=== PATIENT | male | born 1965 | race Caucasian/White ===

== ENCOUNTER 2019-04-18 07:16 | Emergency (ER) | payer BC ==
[2019-04-18] MEDS ORDERED: NS 0.9% 1000 ML** 1,000 ML IV ONE (07:25)
[2019-04-18] MEDS ORDERED: Morphine 4 MG/ML VIAL (1 ml) 4 MG/ML VIAL IV ONE ×2 (07:34→11:11)
[2019-04-18] MEDS ORDERED: Ondansetron INJ* 2 MG/ML VIAL IV ONE (07:34)
[2019-04-18 08:02] LABS: INR 1.09 (0.82-1.09)
[2019-04-18 08:06] LABS: Hematocrit 45 % (42-52); Mean Corpuscular HGB Conc 36 g/dL (31-36); Mean Corpuscular Hemoglobin 33 pg (27-31); Mean Corpuscular Volume 93 fL (80-94); Mean Platelet Volume 8.7 fL (7.4-10.4); Platelet Count 252 10^3/uL (150-450); Red Cell Distribution Width 14 % (10-15); White Blood Count 17.9 10^3/uL (3.5-10.8)
[2019-04-18 08:15] LABS: Albumin 4.5 g/dL (3.2-5.2); Albumin/Globulin Ratio 1.7 (1-3); BUN/Creatinine Ratio 13.8 (8-20); C Reactive Protein 25.02 mg/L (<8.01); Calcium 9.5 mg/dL (8.6-10.3); EGFR African American 100.8 (>60); EGFR Non-African American 83.3 (>60); Globulin 2.7 g/dL (2-4); Magnesium 1.8 mg/dL (1.9-2.7); Potassium 3.6 mmol/L (3.5-5.0); Total Bilirubin 1.3 mg/dL (0.2-1.0); Total Protein 7.2 g/dL (6.4-8.9)
[2019-04-18 08:58] LABS: ABS Lymphocytes 1.6 10^3/ul (1.0-4.8); ABS Monocytes 1.9 10^3/ul (0-0.8); ABS Neutrophils 14.4 10^3/ul (1.5-7.7); Eosinophil % 0.1 %; Lymphocyte % 8.9 %
[2019-04-18] MEDS ORDERED: diPHENhydraMINE IV* 50 MG/ML 1 ml VIAL (BENADRYL) IV ONE (09:51)
[2019-04-18] MEDS ORDERED: Iohexol 300* (CONTRAST) 10 ML SDV IV ONE (09:55)
--- NOTE | 2019-04-18 10:20 | ED ---
Abdominal Pain/Male - HPI Summary HPI Summary: This patient is an otherwise healthy 54-year-old male presenting to the ED with acute onset mid and upper epigastric pain to the abdomen at around 3 PM yesterday. He states immediately before this he drank a grapefruit infused [place] last evening. He states the pain was severe, nonradiating and associated with mild nausea. He denies any vomiting, constipation or diarrhea. He states since that time, the pain has moved to the bilateral lower quadrants and now is endorsing diffuse severe pain. He rates his pain 10/10. Again, nonradiating, denies any back pain. He denies any chest pain or shortness of breath. He does not feel any tearing or ripping sensation, but instead a severe stabbing pain which is now mostly located just below the umbilicus and worse to the right side. He has not taken anything for discomfort. Denies any urinary symptoms. No subjective fevers, but endorses sweats and chills. He states the pain has been constant since approximately 3 PM yesterday, but decided to come in at this point. - History of Current Complaint Chief Complaint: EDAbdPain Stated Complaint: ABD PAIN PER PT Time Seen by Provider: 04/18/19 07:25 Hx Obtained From: Patient Onset/Duration: Sudden Onset Timing: Constant Severity Initially: Severe Severity Currently: Severe Pain Intensity: 9 Pain Scale Used: 0-10 Numeric Location: Diffuse Radiates: No Character: Sharp, Cramping Aggravating Factor(s): Nothing Alleviating Factor(s): Position - lying onto L side Associated Signs And Symptoms: Positive: Nausea. Negative: Diaphoresis, Fever, Cough, Chest Pain, Back Pain, Constipation, Blood in Stool, Urinary Symptoms, Decreased Appetite, Vomiting, Diarrhea, Penile Discharge - Risk Factors Testicular Torsion: Negative Cardiac Risk Factors: Negative - Allergies/Home Medications Allergies/Adverse Reactions: Allergies Allergy/AdvReac Type Severity Reaction Status Date / Time Iodinated Contrast Media Allergy Hives Verified 04/18/19 09:57 Home Medications: Home Medications Candesartan Cilexetil 4 mg PO DAILY 04/18/19 [History Confirmed 04/18/19] Carvedilol 3.125 mg PO BID 04/18/19 [History Confirmed 04/18/19] Fluticasone/Vilanterol MDI(NF) [Breo Ellipta MDI 100/25(NF)] 1 puff INH DAILY [History Confirmed 04/18/19] Mometasone 110 MCG MDI * [Asmanex 110 MCG MDI *] 1 puff INH DAILY 04/18/19 [ History Confirmed 04/18/19] PMH/Surg Hx/FS Hx/Imm Hx Previously Healthy: Yes Endocrine/Hematology History: Denies: Hx Diabetes Cardiovascular History: Reports: Hx Hypertension History: Denies: Hx Renal Disease - Surgical History Surgery Procedure, Year, and Place: tonsils - Immunization History Hx Pertussis Vaccination: No Immunizations Up to Date: Yes Infectious Disease History: No Infectious Disease History: Denies: Traveled Outside the [place] in Last 30 Days - Social History Occupation: Employed Full-time Lives: With Family Alcohol Use: Occasionally Hx Substance Use: No Substance Use Type: Reports: None Hx Tobacco Use: No Smoking Status (MU): Unknown if Ever Smoked Review of Systems Negative: Fever, Chills, Fatigue, Skin Diaphoresis Negative: Palpitations, Chest Pain Negative: Shortness Of Breath, Cough Positive: Abdominal Pain - severe diffuse - worse to the R side, Nausea. Negative: Vomiting, Diarrhea Genitourinary: Negative Positive: no symptoms reported, see HPI Negative: Arthralgia, Myalgia Neurological: Negative All Other Systems Reviewed And Are Negative: Yes Physical Exam Triage Information Reviewed: Yes Vital Signs On Initial Exam: Initial Vitals Temp Pulse Resp BP Pulse Ox 99.3 F 81 16 149/96 97 04/18/19 07:18 04/18/19 07:18 04/18/19 07:18 04/18/19 07:18 04/18/19 07:18 Vital Signs Reviewed: Yes Appearance: Positive: Well-Appearing, Well-Nourished Head/Face: Positive: Normal Head/Face Inspection Eyes: Positive: EOMI, AKBAR, Conjunctiva Clear Neck: Positive: Supple, No Lymphadenopathy Respiratory/Lung Sounds: Positive: Clear to Auscultation, Breath Sounds Present Musculoskeletal: Positive: Normal, Strength/ROM Intact Neurological: Positive: Speech Normal Psychiatric: Positive: Normal, Affect/Mood Appropriate AVPU Assessment: Alert Diagnostics - Vital Signs Vital Signs Temp Pulse Resp BP Pulse Ox 04/18/19 09:29 67 139/95 95 04/18/19 09:00 65 96 04/18/19 08:59 64 138/92 95 04/18/19 08:29 57 142/95 98 04/18/19 08:00 60 99 04/18/19 07:59 70 148/100 96 04/18/19 07:40 17 04/18/19 07:30 70 156/97 98 04/18/19 07:28 75 98 04/18/19 07:18 99.3 F 81 16 149/96 97 - Laboratory Lab Results: Lab Results 04/18/19 04/18/19 04/18/19 Range/Units 07:38 07:38 07:38 WBC 17.9 H (3.5-10.8) 10^3/uL RBC 4.80 (4.18-5.48) 10^6 /uL Hgb 16.0 (14.0-18.0) g/dL Hct 45 (42-52) % MCV 93 (80-94) fL MCH 33 H (27-31) pg MCHC 36 (31-36) g/dL RDW 14 (10-15) % Plt Count 252 (150-450) 10^3/uL MPV 8.7 (7.4-10.4) fL Neut % (Auto) 80.2 % Lymph % (Auto) 8.9 % Adams % (Auto) 10.6 % Eos % (Auto) 0.1 % Baso % (Auto) 0.2 % Absolute Neuts (auto) 14.4 H (1.5-7.7) 10^3/ul Absolute Lymphs (auto) 1.6 (1.0-4.8) 10^3/ul Absolute Monos (auto) 1.9 H (0-0.8) 10^3/ul Absolute Eos (auto) 0.0 (0-0.6) 10^3/ul Absolute Basos (auto) 0.0 (0-0.2) 10^3/ul Absolute Nucleated RBC 0.0 10^3/ul Nucleated RBC % 0.0 INR (Anticoag Therapy) (0.82-1.09) Sodium 135 (135-145) mmol/L Potassium 3.6 (3.5-5.0) mmol/L Chloride 101 (101-111) mmol/L Carbon Dioxide 25 (22-32) mmol/L Anion Gap 9 (2-11) mmol/L BUN 13 (6-24) mg/dL Creatinine 0.94 (0.67-1.17) mg/dL Est GFR ( Amer) 100.8 (>60) Est GFR (Non-Af Amer) 83.3 (>60) BUN/Creatinine Ratio 13.8 (8-20) Glucose 156 H (70-100) mg/dL Lactic Acid 1.3 (0.5-2.0) mmol/L Calcium 9.5 (8.6-10.3) mg/dL Magnesium 1.8 L (1.9-2.7) mg/dL Total Bilirubin 1.30 H (0.2-1.0) mg/dL AST 18 (13-39) U/L ALT 20 (7-52) U/L Alkaline Phosphatase 39 (34-104) U/L Troponin I 0.00 (<0.04) ng/mL C-Reactive Protein 25.02 H (<8.01) mg/L Total Protein 7.2 (6.4-8.9) g/dL Albumin 4.5 (3.2-5.2) g/dL Globulin 2.7 (2-4) g/dL Albumin/Globulin Ratio 1.7 (1-3) Lipase 19 (11.0-82.0) U/L 04/18/19 Range/Units 07:38 WBC (3.5-10.8) 10^3/uL RBC (4.18-5.48) 10^6 /uL Hgb (14.0-18.0) g/dL Hct (42-52) % MCV (80-94) fL MCH (27-31) pg MCHC (31-36) g/dL RDW (10-15) % Plt Count (150-450) 10^3/uL MPV (7.4-10.4) fL Neut % (Auto) % Lymph % (Auto) % Adams % (Auto) % Eos % (Auto) % Baso % (Auto) % Absolute Neuts (auto) (1.5-7.7) 10^3/ul Absolute Lymphs (auto) (1.0-4.8) 10^3/ul Absolute Monos (auto) (0-0.8) 10^3/ul Absolute Eos (auto) (0-0.6) 10^3/ul Absolute Basos (auto) (0-0.2) 10^3/ul Absolute Nucleated RBC 10^3/ul Nucleated RBC % INR (Anticoag Therapy) 1.09 (0.82-1.09) Sodium (135-145) mmol/L Potassium (3.5-5.0) mmol/L Chloride (101-111) mmol/L Carbon Dioxide (22-32) mmol/L Anion Gap (2-11) mmol/L BUN (6-24) mg/dL Creatinine (0.67-1.17) mg/dL Est GFR ( Amer) (>60) Est GFR (Non-Af Amer) (>60) BUN/Creatinine Ratio (8-20) Glucose (70-100) mg/dL Lactic Acid (0.5-2.0) mmol/L Calcium (8.6-10.3) mg/dL Magnesium (1.9-2.7) mg/dL Total Bilirubin (0.2-1.0) mg/dL AST (13-39) U/L ALT (7-52) U/L Alkaline Phosphatase (34-104) U/L Troponin I (<0.04) ng/mL C-Reactive Protein (<8.01) mg/L Total Protein (6.4-8.9) g/dL Albumin (3.2-5.2) g/dL Globulin (2-4) g/dL Albumin/Globulin Ratio (1-3) Lipase (11.0-82.0) U/L Result Diagrams: 04/18/19 07:38 04/18/19 07:38 Lab Statement: Any lab studies that have been ordered have been reviewed, and results considered in the medical decision making process. Abdominal Pain Male Course/Dx - Course Course Of Treatment: During this course of treatment, the patient is evaluated for diffuse and stabbing mid abdominal pain radiating into the bilateral lower quadrants. He denies any worsening pain to the right or to the left side. He denies any vomiting, but endorses mild nausea. Symptoms are better with lying onto his left side and rest, worse with standing, ambulation and lying flat. On physical examination, patient appears to be in pain distress. He is nondiaphoretic and nontoxic in appearing. No pallor noted. No cervical LAD. EOMI/PERRLA. Lungs CTA, RRR. Abdominal tenderness throughout, however severe tenderness to the RLQ. No CVA tenderness bilaterally. Obturator positive, psoas not performed. No swelling of the lower extremities, no weakness noted bilaterally. Morphine and zofran given with good relief. 1L NS given. CT abd/ pelvis with oral and IV contrast: No abnormal masses or fluid collections are noted. No free air is identified. Hepatic steatosis. Discussed this could possibly be constipation and pt is given mag citrate. Continues to be unable to pass gas or have a bowel movement. At this point he requests enema. Soapsuds enema with good effect. Some amount of stool to dislodge and is able to pass gas. Patient is feeling much improved, however continues to endorse diffuse tenderness at 2/10. He states he would like to go home. Strict return precautions were given. - Diagnoses Differential Diagnosis/HQI/PQRI: Appendicitis, Renal Colic, Ureteral Stone, Urinary Tract Infection Provider Diagnoses: Constipation Discharge ED - Sign-Out/Discharge Documenting (check all that apply): Patient Departure Patient Received Moderate/Deep Sedation with Procedure: No - Discharge Plan Condition: Stable Disposition: HOME Patient Education Materials: Constipation (ED) Referrals: No Primary Care Phys,NOPCP [Primary Care Provider] - Additional Instructions: Please return if you have any worsening or changing symptoms Continue with colace and stool softeners as needed Drink plenty of of fluids eat small amounts of food - start with soup if your abdomen continues to be in pain - you need to return - Billing Disposition and Condition Condition: STABLE Disposition: Home
[2019-04-18 10:33] LABS: Urine Appearance Clear; Urine Bacteria Absent (Absent); Urine Bilirubin Negative (Negative); Urine Blood 2+ (Negative); Urine Color Yellow; Urine Glucose 1+(50 mg/dL) (Negative); Urine Ketones 2+ (Negative); Urine Nitrite Negative (Negative); Urine Protein Negative (Negative); Urine Red Blood Cell 1+(3-5/hpf) (Absent); Urine Specific Gravity 1.011 (1.010-1.030); Urine Urobilinogen Negative (Negative); Urine White Blood Cell Trace(0-5/hpf) (Absent)
[2019-04-18] MEDS ORDERED: Magnesium CITRATE* 300 ML BTL PO ONE (11:11)
[2019-04-18 13:37] VITALS: BP 136/87
== END 2019-04-18 13:36 | disposition home or self-care (01) ==
LOC: ED 07:16
DX: K59.00 Constipation, unspecified (principal); K76.0 Fatty (change of) liver, not elsewhere classified; I10 Essential (primary) hypertension; Z79.899 Other long term (current) drug therapy; Z91.041 Radiographic dye allergy status
CPT/HCPCS: 36415; 74177; 80053; 81003; 81015; 83605; 83690; 83735; 84484; 85025; 85610; 86140; 87086; 96361; 96374; 96375; 96376; 99283; A9270-GY; J1200; J2270; J2405; Q9967